=== PATIENT | female | born 1990 | race Asian ===

== ENCOUNTER 2016-07-08 20:20 | Inpatient (IN) | payer SELFPAY ==
[~2016-07-08] VITALS: Ht 168 cm; Wt 63.5 kg
[~2016-07-08 20:20] MED LIST: IBUP-974 PO
[2016-07-08] MEDS ORDERED: LACTATED RINGERS 1,000 ML IV SCH (20:46)
[2016-07-08] MEDS ORDERED: OXYTOCIN 10 UNITS/ML VIAL IM ONE (20:50)
[2016-07-08] MEDS ORDERED: OXYTOCIN 20 UNITS/LR PREMIX 1,000 ML IV SCH (20:50)
[2016-07-08] MEDS ORDERED: PROMETHAZINE 25 MG/ML VIAL IVP PRN (20:50)
[2016-07-08] MEDS ORDERED: AMPICILLIN 2,000 MG in NACL 0.9% MINI-BAG PLUS 100 ML IV SCH (20:50)
[2016-07-08] MEDS ORDERED: NALBUPHINE HYDROCHLORIDE 10 MG/ML VIAL IVP PRN (20:50)
[2016-07-08] MEDS ORDERED: NALBUPHINE HYDROCHLORIDE 10 MG/ML VIAL ONE (21:27)
[2016-07-08] MEDS ORDERED: PROMETHAZINE 25 MG/ML VIAL ONE (21:27)
[2016-07-08] MEDS ORDERED: AMPICILLIN 2,000 MG VIAL ONE (21:27)
[2016-07-08 21:28] LABS: BASOPHILS % (AUTO) 0.4 % (0.0-2.0); EOSINOPHILS # (AUTO) 0.3 K/uL (0-0.4); EOSINOPHILS % (AUTO) 2.9 % (0.0-4.0); HEMATOCRIT 34.7 % (36-48); HEMOGLOBIN 11.3 g/dL (12.0-16.0); LYMPHOCYTES # (AUTO) 1.4 K/uL (2.5-16.5); LYMPHOCYTES % (AUTO) 13.3 % (20.5-51.1); MEAN CORPUSCULAR HEMOGLOBIN 30 pg (27-31); MEAN CORPUSCULAR HGB CONC 33 g/dL (33-37); MEAN CORPUSCULAR VOLUME 91 fL (80-94); MONOCYTES # (AUTO) 0.4 K/uL (0.8-1.0); MONOCYTES % (AUTO) 3.9 % (1.7-9.3); NEUTROPHILS # (AUTO) 8.4 K/uL (1.8-7.7); NEUTROPHILS % (AUTO) 79.5 % (42.2-75.2); PLATELET COUNT (AUTO) 174 K/uL (140-450); RED CELL DISTRIBUTION WIDTH 13.4 % (11.6-13.7); WHITE BLOOD COUNT (AUTO) 10.5 K/uL (4.8-10.8)
[2016-07-08 21:38] LABS: APPEARANCE,URINE CLOUDY (CLEAR); BILIRUBIN,URINE NEGATIVE (NEGATIVE); BLOOD, URINE 2+ (NEGATIVE); COLOR,URINE YELLOW (YELLOW); LEUKOCYTE ESTERASE ,URINE 1+ (NEGATIVE); NITRITE, URINE NEGATIVE (NEGATIVE); PH,URINE 7.5 (5.0-9.0); PROTEIN,URINE NEGATIVE (NEGATIVE); UGLUCOSE NEGATIVE (NEGATIVE); UROBILINOGEN,URINE 0.2 EU/dL (0.2 - 1)
[2016-07-08 21:46] LABS: BACTERIA,URINE 4+ /HPF (None Seen); SQUAMOUS EPITHELIAL CELL,UR 20-40 /LPF (0-3 (FEW)); WBC,URINE 15-30 /HPF (0-5)
[2016-07-08 22:26] VITALS: BP 94/51
[2016-07-08] MEDS ORDERED: ROPIVACAINE 0.2%/NS PREMIX 250 ML EPI ONE (22:37)
[2016-07-08] MEDS ORDERED: OXYTOCIN 20 UNITS/LR PREMIX 1,000 ML IV ONE (23:44)
[2016-07-08] MEDS ORDERED: FERR-193 PO (23:45)
[2016-07-08] MEDS ORDERED: PREN-546 PO (23:45)
[2016-07-09] MEDS ORDERED: AMPICILLIN 1,000 MG in NACL 0.9% MINI-BAG PLUS 50 ML IV SCH ×2
[2016-07-09] MEDS ORDERED: AMPICILLIN 1,000 MG VIAL ONE (01:11)
[2016-07-09] MEDS ORDERED: OXYTOCIN 10 UNITS/ML VIAL ONE (02:17)
[2016-07-09] MEDS ORDERED: METHYLERGONOVINE 0.2 MG/ML AMP IM PRN (03:00)
[2016-07-09] MEDS ORDERED: BENZOCAINE/MENTHOL 20%-0.5% 60 GM CAN TP PRN (03:00)
[2016-07-09] MEDS ORDERED: oxyCODONE/APAP 5/325 MG 1 TAB TAB PO PRN (03:00)
[2016-07-09] MEDS ORDERED: TEMAZEPAM 15 MG CAP PO PRN (03:00)
[2016-07-09] MEDS ORDERED: WITCH HAZEL 40 PAD PACKAGE TP PRN (03:00)
[2016-07-09] MEDS ORDERED: OXYTOCIN 10 UNITS/ML VIAL IM PRN (03:00)
[2016-07-09] MEDS ORDERED: MEASLES, MUMPS, AND RUBELLA 1 VIAL SQVAC PRN (03:00)
[2016-07-09] MEDS: HYDROcodone/APAP 5/325 MG 1 TAB TAB PO PRN ×3 (09:22→20:39)
--- NOTE | 2016-07-09 09:50 | NUR ---
PATIENT HAS BEEN SCREENED AND CATEGORIZED LOW NUTRITION RISK. PATIENT WILL BE SEEN WITHIN 7 DAYS OF ADMISSION. 07/15/[address]
[2016-07-09] MEDS ORDERED: DOCUSATE SOD/SENNA 50/8.6 MG 1 TAB PO SCH (21:00)
[2016-07-10] MEDS: HYDROcodone/APAP 5/325 MG 1 TAB TAB PO PRN ×2 (04:13→20:02)
[2016-07-10 06:38] LABS: HEMATOCRIT 30.7 % (36-48); HEMOGLOBIN 10.1 g/dL (12.0-16.0)
[2016-07-10 08:19] LABS: HEPATITIS B SURFACE ANTIGEN Negative (Negative); RUBELLA AB IGG 1.23 index (Immune >0.99)
[2016-07-10] MEDS: IBUPROFEN 800 MG TAB PO PRN (08:27)
[2016-07-10] MEDS ORDERED: DOCUSATE SOD/SENNA 50/8.6 MG 1 TAB PO SCH (21:00)
[2016-07-11] MEDS: IBUPROFEN 800 MG TAB PO PRN (03:03)
[2016-07-11] MEDS: HYDROcodone/APAP 5/325 MG 1 TAB TAB PO PRN (09:53)
== END 2016-07-11 12:45 | disposition home or self-care (01) | DRG 775 ==
LOC: MLD 20:20 → OBSVTOIN 20:46 → MFCC 07-09 09:18
PROVIDERS: ADMIT Obstetrics & Gynecology; ATTEND Obstetrics & Gynecology
PROC: 10E0XZZ Delivery of Products of Conception, External Approach (ICD-10-PCS; principal; 2016-07-09)
PROC: 0KQM0ZZ Repair Perineum Muscle, Open Approach (ICD-10-PCS; 2016-07-09)
PROC: 10907ZC Drainage of Amniotic Fluid, Therapeutic from Products of Conception, Via Natural or Artificial Opening (ICD-10-PCS; 2016-07-09)
PROC: 00HU33Z Insertion of Infusion Device into Spinal Canal, Percutaneous Approach (ICD-10-PCS; 2016-07-09)
PROC: 3E0R3CZ (ICD-10-PCS; 2016-07-09)
DX: O70.1 Second degree perineal laceration during delivery (principal); Z37.0 Single live birth; Z3A.38 38 weeks gestation of pregnancy; Z28.21 Immunization not carried out because of patient refusal
CPT/HCPCS: 36415; 51702; 59409; 81001; 85018; 85025; 86592; 86762; 86886; 86900; 86901; 87086; 87340; 87653-90; G0378; J0290; J2300; J2550; J2590; J2795; J7120